=== PATIENT | male | born 1950 | race Caucasian/White ===

== ENCOUNTER 2017-03-23 13:12 | Emergency (ER) | payer MEDICARE, OTHER ==
[~2017-03-23] VITALS: Ht 177.8 cm; Wt 111.5 kg
[2017-03-23] MEDS ORDERED: PRINIVIL2.5 MG PO (14:38)
[2017-03-23] MEDS ORDERED: ZYLOPRIM100 MG PO (14:38)
[2017-03-23] MEDS ORDERED: AUGMENTIN 875-1 EACH PO (14:39)
[2017-03-23] MEDS ORDERED: SILVADENE20 GM TOP (14:39)
== END 2017-03-23 14:12 | disposition short-term general hospital (02) ==
LOC: ER 13:12
DX: T25.221A Burn of second degree of right foot, initial encounter (principal); L03.115 Cellulitis of right lower limb; Z79.899 Other long term (current) drug therapy
CPT/HCPCS: J0696

== ENCOUNTER → 2017-03-25 | Outpatient (CLI) | payer MEDICARE, OTHER ==
[~2017-03-25] MED LIST: AUGMENTIN 875-1 EACH PO; PRINIVIL2.5 MG PO; SILVADENE20 GM TOP; ZYLOPRIM100 MG PO
== END | disposition short-term general hospital (02) ==
LOC: CLONCO 06:53
DX: D75.1 Secondary polycythemia (principal); E22.1 Hyperprolactinemia